=== PATIENT | male | born 1980 ===

== ENCOUNTER 2024-02-04 13:19 | Emergency (ER) | payer OTHER, SELFPAY ==
[2024-02-04 13:26] VITALS: BP 152/93; PULSE 88; RESP 16; TEMP 36.4; O2SAT 100
--- NOTE | 2024-02-04 13:35 | ED.BACK ---
HPI - Back Pain/Injury General Chief Complaint: Back Pain/Injury Stated Complaint: Back Pain Time Seen by Provider: 02/04/24 13:35 Source: patient Mode of arrival: ambulatory Limitations: no limitations History of Present Illness HPI Narrative: 43-year-old male presents with complaint of back pain since last night. States that low back feels very tight. Patient states that he has been building a retaining wall the last 2-3 days. Carrying heavy blocks and sand bags. No injury while building a retaining wall. Last night went out for dinner and noticed back was aching while sitting in chair. When he stood up he could not stand up straight due to muscle tightness. Called his primary care physician to day and she prescribed cyclobenzaprine and diclofenac. Was told to come to [facility] for [facility] shot. Patient ambulatory with steady gait. No weakness or numbness to lower extremities. No loss of bowel or bladder. All systems reviewed and negative except as noted above. Related Data Home Medications Medication Instructions Recorded Confirmed diclofenac sodium 75 mg 75 mg PO BID 10/06/21 02/04/24 tablet,delayed release rosuvastatin 5 mg tablet 5 mg PO DAILY 10/06/21 02/04/24 cyclobenzaprine 10 mg tablet 10 mg PO TID 02/04/24 02/04/24 syringe with needle 3 mL 23 gauge 02/04/24 02/04/24 x 1 1/2 (BD Luer-Irma Syringe) testosterone cypionate 200 mg/mL 200 mg subcut DIRECTED 02/04/24 02/04/24 intramuscular oil Allergies Allergy/AdvReac Type Severity Reaction Status Date / Time erythromycin base Allergy Unknown Confusion Verified 02/04/24 13:23 Review of Systems Review of Systems: CONSTITUTIONAL: Denies fever, chills, or sweats. EYES: Denies visual changes, redness, or discharge. ENT: Denies rhinorrhea, congestion, sore throat, or otalgia. CARDIOVASCULAR: Denies chest pain, palpitations, or edema. RESPIRATORY: Denies cough or dyspnea. GASTROINTESTINAL: Denies abdominal pain, nausea, vomiting, or diarrhea. GENITOURINARY: Denies dysuria or hematuria. SKIN: Denies rash or itching. MUSCULOSKELETAL: Reports low back pain. Denies joint pain, or myalgia. NEUROLOGIC: Denies headache, numbness, or weakness. PSYCHIATRIC: Denies anxiety or depression. All other systems reviewed are negative, except as documented in HPI. [facility] Past Medical History Medical History (Updated 02/04/24 @ 13:51 by Jayne Tian NP) Hypertension Surgical History Surgical History (Updated 10/06/21 @ 11:37 by Estela Sylvester [facility]) History of cholecystectomy History of knee surgery Family History Family History (Updated 10/06/21 @ 11:37 by Estela Sylvester [facility]) Mother Family history of diabetes mellitus in first degree relative Father Thyroid cancer Social History Social History (Updated 10/06/21 @ 11:37 by Estela Sylvester [employer]) Smoking status: Never smoker Alcohol intake: current Substance use: never Comments At time of signature, agree with nursing past medical, surgical, social and family history. There is no relevant family history pertinent to the presenting complaint. Exam Narrative: GENERAL: This is a well-nourished, well-developed patient, in no apparent distress. HEAD: normocephalic, atraumatic. EYES: PERRL. Sclera clear/white. Vision is grossly intact. EARS: External ears normal NOSE: External nose normal NECK: Neck supple, non-tender without lymphadenopathy, masses or thyromegaly. CARDIOVASCULAR: Regular rate and rhythm without murmurs, gallops, or rubs. RESPIRATORY: Clear to auscultation. Breath sounds equal bilaterally. No wheezes, rales, or rhonchi. SKIN: warm, Dry, intact with no suspicious lesions or rash, good texture and turgor. NEURO: awake, alert, and oriented to person, place and time. There were no obvious focal neurologic abnormalities. EXTREMITIES: No joint tenderness, effusion, or edema noted. No calf tenderness. Negative Homans sign bilaterally. BACK: Gene
[2024-02-04] MEDS: TRIAMCINOLONE ACET INJ 40 MG/ML VIAL IM (13:58)
== END 2024-02-04 14:05 | disposition home or self-care (01) ==
PROVIDERS: Emergency Provider Nurse Practitioner Family; PCP Physician Assistant
DX: S39.012A Strain of muscle, fascia and tendon of lower back, initial encounter (principal); X50.0XXA Overexertion from strenuous movement or load, initial encounter; I10 Essential (primary) hypertension
CPT/HCPCS: 96372; 99213; G0463; J3301

== ENCOUNTER 2024-06-07 09:58 | Outpatient (CLI) | payer OTHER, SELFPAY ==
--- NOTE | ~2024-06-07 | XR_ITS ---
XR_[id number] 06/07/2024 10:28 Indication: Cervical dysfunction. Pain. Procedure: 4 view cervical spine Comparison: No prior studies for comparison. Findings: Straightening of cervical lordosis. Vertebral body heights are maintained. No acute fractur e or traumatic malalignment. No prevertebral soft tissue swelling. Mild multilevel uncinate hypertrop hy. Lung apices are normal. Impression: 1: Mild cervical spondylosis. Reviewed, dictated and finalized at location B. Impression: 1: Mild cervical spondylosis.
--- NOTE | ~2024-06-07 | XR_ITS ---
XR lumbar spine 2-3V 06/07/2024 10:28 Indication: Low back pain Procedure: 3 views lumbar spine Comparison: No prior studies for comparison. Findings: Vertebral body heights are maintained. No fracture, subluxation or dislocation. Pedicles in tact. No evidence for spondylolisthesis. Mild disc narrowing at L4-5 and L5-S1. Impression: 1: Mild lumbar spondylosis. Reviewed, dictated and finalized at location B. Impression: 1: Mild lumbar spondylosis.
== END 2024-06-07 09:59 | disposition home or self-care (01) ==
PROVIDERS: PCP Physician Assistant
DX: M99.01 Segmental and somatic dysfunction of cervical region (principal); M47.892 Other spondylosis, cervical region; M47.896 Other spondylosis, lumbar region
CPT/HCPCS: 72040; 72100